=== PATIENT | female | born 1985 | race Hispanic/Latino ===

== ENCOUNTER → 2017-09-29 15:55 | Outpatient (CLI) | payer OTHER, SELFPAY ==
--- NOTE | 2017-09-29 16:11 | CT_ITS ---
STUDY: CT MAXILLOFACIAL SINUSES REASON FOR EXAM: Female, 32 years old. Deviated septum. RADIATION DOSAGE (If Supplied By Facility): CTDIvol = ( 33.45 ) mGy, DLP = ( 793.09 ) mGycm TECHNIQUE: The patient was scanned in a multi detector CT scanner. High resolution axial imaging was performed without the administration of intravenous contrast material. Sagittal and coronal images were reconstructed. Individualized dose optimization techniques were used for this CT. COMPARISON: None. FINDINGS: : NASAL SEPTUM: Mild bowing to the left CRIBRIFORM PLATE AND KITTY DINORA: The fovea ethmoidalis, lateral lamella and lamina cribrosa are normal. The anterior ethmoidal notch is normal with no supraorbital pneumatization. The olfactory fossa is symmetric with a Keros type II. No skull base dehiscence LAMINA PAPYRACEA: No remote orbital fracture and no orbital prolapse into the ethmoidal sinus . BONY ADAMS: No dehiscence, demineralization or thickness TURBINATES: Normal thickness and no paradoxical orientation. No willis bullosa . No turbinectomy OSTIOMEATAL UNITS: The right is patent but is partial narrowing of the left SPHENOETHMOIDAL RECESS: Patent FRONTAL SINUSES: Well developed and pneumatized with no abnormal soft tissue attenuations in them ETHMOID AIR CELLS: Aggar Nasi air cells are noted. No Chen air cells. Both the anterior and posterior ethmoidal air cells are clear of abnormal soft tissue attenuations MAXILLARY SINUSES: The right is normal. There is mucoperiosteal thickening involving the floor of the left. Bubbly areas are also seen. Inflammatory changes in the right maxillary sinus. SPHENOID SINUSES: Normal with conchal, presellar or sellar type pneumatization. No dehiscence into carotid canal and no optic nerve dehiscence within the sphenoid sinus. No Onodi air cells ORBITS: Negative SKULL BASE/CRANIOVERTEBRAL JUNCTION/UPPER CERVICAL SPINE.: Normal. CT/Sinus/Facial Bone IMPRESSION: Partial occlusion of the left ostiomeatal unit with left maxillary sinusitis. There are also inflammatory changes involving the posterior aspect of the right maxillary sinus. Mild bowing of the nasal septum to the left without any spurs Electronically Signed: Rodrick Ojeda, at 7:12 EDT Tel , Service support ,
== END ==
PROVIDERS: Visit Provider Otolaryngology Otolaryngology/Facial Plastic Surgery
DX: J32.9 Chronic sinusitis, unspecified (principal)
CPT/HCPCS: 70486

== ENCOUNTER 2018-05-17 19:11 | Emergency (ER) | payer OTHER, SELFPAY ==
[2018-05-17 19:12] VITALS: BP 118/83; PULSE 71; RESP 17; TEMP 36.6; O2SAT 96; BMI 21.2
--- NOTE | 2018-05-17 19:56 | ED.VISSUMM ---
- ER Visit Summary Date of Service: 05/17/18 Chief Complaint: Headache History of Present Illness: The patient is a 33 F who presents with a headache that has been getting worse over the past 3 days. Patient states the pain is gradually gotten worse over the past 3 days. Patient states the pain is over the posterior aspect of the right ear and right occipital areas. Patient denies any fevers but admits to subjective chills. Patient admits to some blurred vision and some photophobia. Patient admits to nausea but denies any vomiting. Patient admits to some mild neck pain. Patient denies any paresthesias or weakness. Patient states she gets dizzy with the headaches. Patient states her dizziness feels like she is off balance. Patient also admits to some decreased hearing with the headaches. Patient denies any trauma or injury. Physical Examination: Vital signs are stable. Patient is afebrile. Patient is in no acute distress. Oral mucosa is pink and moist. Neck is supple. Trachea is midline. There is some mild right upper cervical paraspinal muscle tenderness. There is no midline tenderness. There is no tenderness over the mastoid process. Heart was regular rate and rhythm. Lungs are clear and equal bilaterally. Abdomen is soft and nontender. Cranial nerves II through XII are intact. There are no focal motor or sensory deficits noted. The remaining physical exam is within normal limits. Test Results: CBC and basic metabolic profile were obtained and were within normal limits. Emergency Department Course and Treatment: Patient was given IV fluids, Reglan, and Benadryl here. Patient felt better on reevaluation. Patient was instructed to rest in a dark quiet room. Patient was instructed to follow-up with her primary care physician in 5-7 days. Patient understood and was agreeable with the plan. All questions were answered. Disposition: Discharge home Impression: Headache This note was generated with [employer]oust dictation software. It may contain incorrect words, spelling, and punctuation that were not noted in review of the chart prior to signing Capacity - Capacity Assessment Tool Can the patient make a choice & communicate that choice?: Yes Can the patient understand benefits, risks and alternatives?: Yes Can the patient make a logical, rational choice?: Yes Is the choice the patient makes consistent w/ their values?: Yes Is there an impending, emergent risk to the patient?: No Is there a Surrogate Available?: Yes i.e. close relative (spouse, child, parent, sibling)?: Yes ED Disposition - Plan for ED Patient: Disposition: Home or Assisted Living Diagnosis: Headache Instructions: ED Cephalgia Unspecified Referrals: NOT,DEFINED [NON-STAFF] -
--- NOTE | 2018-05-17 19:59 | ED.DCSUM_ITS ---
- ER Visit Summary Date of Service: 05/17/18 Chief Complaint: Headache History of Present Illness: The patient is a 33 F who presents with a headache that has been getting worse over the past 3 days. Patient states the pain is gradually gotten worse over the past 3 days. Patient states the pain is over th e posterior aspect of the right ear and right occipital areas. Patient denies any fevers but admits to subjective chills. Patient admits to some blurred vision and some photophobia. Patient admits to nausea but denies any vomiting. Patient admits to some mild neck pain. Patient denies any paresthesias or weakness. Patient states she gets dizzy with the headaches. Patient states her dizziness feels like she is off balance. Patient also admits to some decreased hearing with the headaches. Patient denies any trauma or injury. Physical Examination: Vital signs are stable. Patient is afebrile. Patient is in no acute distress. Oral mucosa is pink and moist. Neck is supple. Trachea is midline. There is some mild right upper cervical paraspinal muscle tendernes s. There is no midline tenderness. There is no tenderness over the mastoid process. Heart was regular rate and rhythm. Lungs are clear and equal bilaterally. Abdomen is soft and nontender. Cranial nerves II through XII are intact. There are no focal motor or sensory deficits noted. The remaining physical exam is within normal limits. Test Results: CBC and basic metabolic profile were obtained and were within normal limits. Emergency Department Course and Treatment: Patient was given IV fluids, Reglan, and Benadryl here. Patient felt better on reevaluation. Patient was instructed to rest in a dark quiet room. Patient was instructed to follow-up with her primary care physician in 5-7 days. Patient understood and was agreeable with the plan. All questions were answered. Disposition: Discharge home Impression: Headache This note was generated with [employer] dictation software. It may contain incorrect words, spelling, and punctuation that were not noted in review of the chart prior to signing Capacity - Capacity Assessment Tool Can the patient make a choice & communicate that choice?: Yes Can the patient understand benefits, risks and alternatives?: Yes Can the patient make a logical, rational choice?: Yes Is the choice the patient makes consistent w/ their values?: Yes Is there an impending, emergent risk to the patient?: No Is there a Surrogate Available?: Yes i.e. close relative (spouse, child, parent, sibling)?: Yes ED Disposition - Plan for ED Patient: Disposition: Home or Assisted Living Diagnosis: Headache Instructions: ED Cephalgia Unspecified Referrals: NOT,DEFINED [NON-STAFF] -
[2018-05-17] MEDS: DiphenhydrAMINE 50 MG/ML Syringe 25 MG IV (20:06)
[2018-05-17] MEDS: Metoclopramide 10 MG/2 ML Vial IV (20:06)
[2018-05-17] MEDS: 0.9% Normal Saline 1,000 ML 1000 ML IV (20:06)
[2018-05-17 20:22] LABS: Absolute Lymphocyte Count 2.55 X10^3/ul (0.83-4.51); Absolute Neutrophil Count 4.1 X10^3/uL (2.0-7.7); Basophil% 1.4 % (0-1); Eosinophil# 0.14 X10^3/uL; Eosinophils% 1.9 % (0-5); Hemoglobin 12.3 g/dl (12.0-15.0); Lymphocyte # 2.55 X10^3/ul (4.0); Lymphocyte % 34.5 % (19-41); Mean Corp Hgb Conc 33.2 g/gl (32-36); Mean Corpuscular Volume 87.3 fL (81-99); Mean Platelet Vol. 10.2 fl (6.2-12.0); Monocyte% 6.8 % (0-10); Neutrophil # 4.08 X10^3/uL (2.7-7.7); Neutrophil % 55.1 % (47-70); Platelet Count 322 K/mm3 (150-450); RBC Distribution Width CV 12.1 % (11.6-14.6); RBC Distribution Width SD 38.8 fl (35.1-43.9); Red Blood Count 4.24 M/mm3 (4.2-5.4); White Blood Count 7.4 K/mm3 (4.4-11.0)
[2018-05-17 20:24] LABS: POSITIVE COUNT NO; POSITIVE DIFFERENTIAL NO; POSITIVE MORPHOLOGY NO
[2018-05-17 20:30] LABS: Anion Gap 9 (5-15); BUN 12 mg/dL (7-18); BUN/Creat Ratio 14.7 RATIO (10-20); Calcium,Total 8.7 mg/dL (8.5-10.1); Chloride 107 mmol/L (98-107); Creatinine, Serum 0.82 mg/dL (0.55-1.02); EST Glomerular Filtration Rate 87 mL/min (>60); Est Glom Filt Rate - Afr Amer 105 mL/min (>60); Estimated Creatinine Clearance 82.23 ml/min; Glucose 102 mg/dL (74-106); Potassium 3.4 mmol/L (3.5-5.1); Sodium Level 140 mmol/L (136-145)
[2018-05-17 21:00] LABS: Pregnancy, Serum, hCG Quali. NEGATIVE Negative (0-9 Nonpreg)
[2018-05-17 22:14] VITALS: BP 102/64; PULSE 60; RESP 17; O2SAT 99
--- NOTE | 2018-05-17 22:14 | ED.RN ---
IV DC'ED, CATHETER INTACT, SMALL GAUZE DRESSING PLACED. DISCHARGE INSTRUCTIONS GIVEN TO AND REVIEWED WITH PATIENT, PATIENT DENIES QUESTIONS OR CONCERNS AND VOICES UNDERSTANDING OF DISCHARGE INSTRUCTIONS. PT AMBULATES OUT OF ROOM WITHOUT DIFFICULTY.
== END 2018-05-17 22:15 | disposition home or self-care (01) ==
PROVIDERS: Emergency Provider Emergency Medicine
DX: R51 Headache (principal); H92.01 Otalgia, right ear; H53.8 Other visual disturbances; M54.2 Cervicalgia; R42 Dizziness and giddiness; R11.0 Nausea; K21.9 Gastro-esophageal reflux disease without esophagitis
CPT/HCPCS: 80048; 84703; 85025; 96361; 96374; 96375; 99283; J7030; A4216